=== PATIENT | male | born 1980 | race Hispanic/Latino ===

== ENCOUNTER 2016-07-27 11:33 | Observation (INO) | payer MEDICAID ==
[2016-07-27 12:10] VITALS: BMI 21.7
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
[2016-07-27 22:14] VITALS: O2SAT 98
[2016-07-28 06:25] VITALS: BP 138/78; PULSE 80; RESP 20; TEMP 98.2
== END 2016-07-28 06:23 | disposition home or self-care (01) ==
LOC: ED 11:33 → EROBSV 11:52
PROVIDERS: ADMIT Emergency Medicine; ATTEND Emergency Medicine
DX: F10.129 Alcohol abuse with intoxication, unspecified (principal); Y90.9 Presence of alcohol in blood, level not specified
CPT/HCPCS: 96372; 99284; G0378; J1630; J2060

== ENCOUNTER 2017-05-30 18:35 | Emergency (ER) | payer MEDICAID ==
[2017-05-30 18:35] VITALS: BMI 23.7
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
[2017-05-30] MEDS ORDERED: TDAP Vaccine 0.5 mL Syr IM ONE (18:53)
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
--- NOTE | 2017-05-31 00:03 | ED PDOC ---
Physical Exam Vital Signs Temp Pulse Resp BP Pulse Ox 05/31/17 06:19 99 H 18 159/56 H 100 05/31/17 04:23 82 94 H 122/70 17 L 05/31/17 02:13 81 18 117/63 100 05/30/17 23:08 69 18 127/70 100 05/30/17 20:30 98.2 F 68 16 136/62 100 Medical Decision Making ED Course and Treatment: 05/30/17 23:30 Case endorsed to me by Dr. Seymour, pending sobriety, re-assessment, and disposition. - Lab Interpretations Lab Results: Lab Results 05/31/17 06:11: POC Glucose (mg/dL) 104 05/30/17 20:30: Alcohol, Quantitative 355 H* - RAD Interpretation Radiology Orders: 05/30/17 18:53 HEAD W/O CONTRAST [CT] Stat 05/30/17 18:54 MAXILLOFACIAL W/O CONTRAST [CT] Stat KNEES BILATERAL [RAD] Stat 05/30/17 18:55 PELVIS ONE VIEW [RAD] Stat - Medication Orders Current Medication Orders: Discontinued Medications Haloperidol Lactate (Haldol) 5 mg IM STAT STA PRN Reason: Protocol Stop: 05/30/17 19:48 Last Admin: 05/30/17 20:04 Dose: 5 mg IM Administration Charges Document 05/30/17 20:04 RD (Rec: 05/30/17 20:04 RD [id number]) Injection Site MAR Injection Site Left Vastus Lateralis Charges for Administration # of IM Administrations 1 Lorazepam (Ativan) 2 mg IM ONCE ONE PRN Reason: Protocol Stop: 05/30/17 19:47 Last Admin: 05/30/17 20:03 Dose: 2 mg IM Administration Charges Document 05/30/17 20:03 RD (Rec: 05/30/17 20:04 RD [id number]) Injection Site MAR Injection Site Right Vastus Lateralis Charges for Administration # of IM Administrations 1 Tetanus/Reduced Diphtheria/Acell Pertussis (Boostrix Vaccine Inj) 0.5 ml IM .ONCE ONE Stop: 05/30/17 18:54 Last Admin: 05/30/17 20:03 Dose: 0.5 ml MAR Immunization Data Document 05/30/17 20:03 RD (Rec: 05/30/17 20:03 RD [id number]) Immunization Data Vaccine Information Sheet Given Yes Vaccine Information Sheet Given Date 05/30/17 Immunization Registry Document 05/30/17 20:03 RD (Rec: 05/30/17 20:03 RD [id number]) Immunization Registry Consent Date 05/30/17 - Transfer of Care Patient signed out to Dr:: David Other: pending sobriety/reassess/final disposition Disposition/Present on Arrival - Present on Arrival Any Indicators Present on Arrival: No History of DVT/PE: No History of Uncontrolled Diabetes: No Urinary Catheter: No History of Decub. Ulcer: No History Surgical Site Infection Following: None - Disposition Have Diagnosis and Disposition been Completed?: No Diagnosis: Alcohol intoxication, Facial contusion, Knee contusion Disposition Time: 07:00 Patient Problems: Current Active Problems Problem Status Onset Alcohol intoxication Acute Facial contusion Acute Knee contusion Acute Condition: STABLE Forms: [employer] (Bahraini)
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
[2017-05-31] MEDS ORDERED: TDAP Vaccine 0.5 mL Syr IM ONE (09:06)
[2017-05-31] MEDS ORDERED: Bacitracin 500 Units/gm Oint Foilpak UD TOP ONE (09:07)
[2017-05-31 11:30] VITALS: BP 133/74; PULSE 83; RESP 16; TEMP 98.8; O2SAT 99
== END 2017-05-31 13:06 | disposition home or self-care (01) ==
LOC: ED 18:35
DX: S00.83XA Contusion of other part of head, initial encounter (principal); S80.01XA Contusion of right knee, initial encounter; S80.02XA Contusion of left knee, initial encounter; Y08.89XA Assault by other specified means, initial encounter; Y92.89 Other specified places as the place of occurrence of the external cause; F10.129 Alcohol abuse with intoxication, unspecified; Y90.8 Blood alcohol level of 240 mg/100 ml or more; Z23 Encounter for immunization
CPT/HCPCS: 70450; 70486; 72170; 73560; 80320; 82948; 90471; 90715; 96372; 99285; J1630; J2060

== ENCOUNTER 2017-06-07 03:09 | Emergency (ER) | payer MEDICAID ==
[2017-06-07 03:09] VITALS: BMI 23.7
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
[2017-06-07 03:29] VITALS: TEMP 97.4
[2017-06-07 07:07] VITALS: BP 120/77; PULSE 90; RESP 17; O2SAT 99
== END 2017-06-07 06:57 | disposition home or self-care (01) ==
LOC: ED 03:09
DX: S09.90XA Unspecified injury of head, initial encounter (principal); W10.9XXA Fall (on) (from) unspecified stairs and steps, initial encounter; F17.210 Nicotine dependence, cigarettes, uncomplicated